=== PATIENT | male | born 1940 | race Caucasian/White ===

== ENCOUNTER 2019-01-28 09:25 | Inpatient (IN) | payer MEDICARE ==
[2019-01-28] MEDS ORDERED: Naloxone HCl 2 mg/2 ml Syringe ONE (09:31)
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
[2019-01-28 10:18] LABS: Hemoglobin 15.7 g/dL (14.0-18.0); Mean Corpuscular HGB CONC 34.3 g/dL (32.0-36.0); Mean Corpuscular Hemoglobin 32.3 pg (27.0-31.0); Mean Corpuscular Volume 94.1 fL (78.0-98.0); Mean Platelet Volume 9.2 fL (7.4-10.4); Platelet Count 245 thou/uL (130-400); RBC Distribution Width 12.4 % (11.5-14.5); Red Blood Cell (RBC) Count 4.85 mill/uL (4.70-6.10); White Blood Cell (WBC) Count 20.9 thou/uL (4.8-10.8)
[2019-01-28 10:21] LABS: INR-International Normal Ratio 1.2; PTT 30.5 SEC (22.9-36.1); Prothrombin Time 14.8 SEC (12.0-14.7)
[2019-01-28] MEDS ORDERED: ISOVUE-370 76%-LOCM 1 ML ONE (10:23)
[2019-01-28 10:24] LABS: ALT (SGPT) 24 U/L (8-55); AST (SGOT) 39 U/L (5-34); Alkaline Phosphatase 96 U/L (40-150); Anion Gap 14 mmol/L (10-20); BUN (Urea Nitrogen) 6 mg/dL (8.4-25.7); Bilirubin, Total 0.9 mg/dL (0.2-1.2); Calc. Creatinine Clearance 0 mL/min (70-130); Carbon Dioxide 24 mmol/L (23-31); Chloride 106 mmol/L (98-107); Estimated GFR-MDRD 73; Globulin 2.7 g/dL (2.4-3.5); Glucose 165 mg/dL (83-110); Potassium 4.2 mmol/L (3.5-5.1); Protein, Total 6.7 g/dL (5.8-8.1); Sodium 140 mmol/L (136-145)
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
[2019-01-28 10:37] LABS: Band 32 % (5-11); Eosinophils 1 % (0-10); Lymphocytes 7 % (21-51); MDiff Complete? YES; Metamyelocyte 2 % (0-0); Monocytes 2 % (0-10); Neutrophil 55 % (42-75); Reactive Lymphocytes 1 % (0-10)
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
[2019-01-28 10:43] LABS: Alcohol Less than 10 mg/dL (Less than 10); Lipase 37 U/L (8-78)
[2019-01-28] MEDS ORDERED: Acetaminophen 1,000 MG in Premix Bag 1 BAG IVPB SCH ×2 (10:45→12:00)
[2019-01-28] MEDS ORDERED: hydrALAZINE 20 MG/ML VIAL SLOW IVP PRN (10:51)
[2019-01-28] MEDS ORDERED: Ondansetron ODT 4 MG TAB PO PRN (10:51)
[2019-01-28] MEDS ORDERED: Dextrose 5% in Water 1,000 ML IV PRN (10:51)
[2019-01-28] MEDS ORDERED: Ondansetron PF 4 MG/2 ML Vial IVP PRN (10:51)
[2019-01-28] MEDS ORDERED: Dextrose 50% Abboject 50 ML SYRINGE SLOW IVP PRN (10:51)
[2019-01-28] MEDS ORDERED: traMADol HCl 50 MG TAB PO PRN (10:59)
[2019-01-28] MEDS ORDERED: Adacel (T-DAP) 0.5 ML SYRINGE ONE (11:01)
[2019-01-28] MEDS ORDERED: Ketorolac Tromethamine 30 MG/ML VIAL ONE (12:06)
[2019-01-28 12:54] LABS: Bilirubin Negative (Negative); Blood, Urine 3+ (Negative); Clarity Turbid (Clear); Glucose, Urine (Dipstick) Normal (Negative); Leukocyte 25 Leu/uL (Negative); Nitrite Negative (Negative); Protein, Urine (Dipstick) 50 mg/dL (Neg-Trace); RBC/HPF Greater than 50 HPF (0-3); Squamous Epithelial None Seen HPF (0-3)
[2019-01-28 13:00] LABS: Sperm/HPF 4+ HPF (None Seen)
[2019-01-28] MEDS ORDERED: Piperacillin/Tazobactam 4.5 GM VIAL ONE (13:00)
[2019-01-28 13:01] LABS: Bacteria/HPF Rare-Few HPF (None Seen); WBC/HPF 0-3 HPF (0-3)
[2019-01-28 13:11] LABS: Phosphorus 3.3 mg/dL (2.3-4.7)
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
[2019-01-28 14:21] LABS: Lactic Acid 5.3 mmol/L (0.5-2.2)
[2019-01-28] MEDS ORDERED: Gabapentin 300 MG CAP PO SCH (15:00)
[2019-01-28] MEDS: traMADol HCl 50 MG TAB PO SCH ×3 (15:31→23:41)
[2019-01-28] MEDS: Sodium Chloride 0.9% 1,000 ML IV SCH ×2 (15:31→21:43)
--- NOTE | 2019-01-28 15:32 | PDOC.EVN ---
Event Note - Event Note Event Note: See trauma H&P by Chiqui Quesada NP. Received narcan on presentation due to narcotic effect. He has had periods of hypotention that respond to fluids. Multiple spinous process fractures and multiple rib fractures. He has first rib fracture but no intimal flap on the CT chest. notes blood in urine yesterday. No evidence of traumatic injury to intra-abd solid and hollow organs. Admit to IMCU, pain control. Blood cultures.
[2019-01-28] MEDS ORDERED: cefTRIAXone\\ROCEPHIN 2 GM in Sodium Chloride 0.9% 100 ML IVPB SCH (16:00)
[2019-01-28] MEDS ORDERED: Acetaminophen 500 MG TAB PO SCH (17:00)
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
[2019-01-28 17:48] LABS: Bilirubin Negative (Negative); Blood, Urine 3+ (Negative); Clarity Turbid (Clear); Glucose, Urine (Dipstick) Normal (Negative); Leukocyte 25 Leu/uL (Negative); Nitrite Negative (Negative); Protein, Urine (Dipstick) 50 mg/dL (Neg-Trace); RBC/HPF Greater than 50 HPF (0-3); Urobilinogen Normal mg/dL (Less than 2)
[2019-01-28 17:52] LABS: WBC/HPF 0-3 HPF (0-3)
[2019-01-28 17:53] LABS: Bacteria/HPF 1+ HPF (None Seen); Squamous Epithelial 0-3 HPF (0-3)
[2019-01-28 17:54] LABS: Urine Culture Reflex No No
[2019-01-28] MEDS ORDERED: Morphine 2 MG/ML SYRINGE IVP PRN (20:13)
[2019-01-28] MEDS ORDERED: Famotidine 20 MG TAB PO PRN (21:00)
[2019-01-28] MEDS ORDERED: Azithromycin 500 MG in Sodium Chloride 0.9% 250 ML 250 ML IVPB SCH (21:00)
[2019-01-28] MEDS: Senokot S 8.6-50 MG TAB PO SCH (21:42)
[2019-01-28] MEDS: Atorvastatin Calcium 20 MG TAB PO SCH (21:42)
[2019-01-28] MEDS: Ibuprofen 600 MG TAB PO SCH (21:43)
[2019-01-28] MEDS: Gabapentin 100 MG CAP PO SCH (21:43)
[2019-01-28] MEDS: Acetaminophen 1,000 MG in Premix Bag 1 BAG IVPB SCH (23:41)
[2019-01-29] MEDS ORDERED: Sodium Chloride 0.9% 500 ML IV SCH (00:15)
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
[2019-01-29] MEDS: Sodium Chloride 0.9% 1,000 ML IV SCH (04:00)
[2019-01-29 05:20] LABS: Lactic Acid 3.1 mmol/L (0.5-2.2); Phosphorus 3.2 mg/dL (2.3-4.7)
[2019-01-29 05:21] LABS: Band 29 % (5-11); Hemoglobin 10.5 g/dL (14.0-18.0); Lymphocytes 8 % (21-51); MDiff Complete? YES; Mean Corpuscular HGB CONC 34.4 g/dL (32.0-36.0); Mean Corpuscular Hemoglobin 32.8 pg (27.0-31.0); Mean Corpuscular Volume 95.1 fL (78.0-98.0); Mean Platelet Volume 9.2 fL (7.4-10.4); Monocytes 4 % (0-10); Neutrophil 59 % (42-75); Platelet Count 145 thou/uL (130-400); RBC Distribution Width 12.4 % (11.5-14.5); Red Blood Cell (RBC) Count 3.21 mill/uL (4.70-6.10); White Blood Cell (WBC) Count 13.6 thou/uL (4.8-10.8)
[2019-01-29 05:24] LABS: Anion Gap 13 mmol/L (10-20); BUN (Urea Nitrogen) 14 mg/dL (8.4-25.7); Calc. Creatinine Clearance 65 mL/min (70-130); Calcium 7.8 mg/dL (7.8-10.44); Carbon Dioxide 20 mmol/L (23-31); Chloride 113 mmol/L (98-107); Estimated GFR-MDRD 62; Glucose 147 mg/dL (83-110); Potassium 4.9 mmol/L (3.5-5.1); Sodium 141 mmol/L (136-145)
[2019-01-29] MEDS: traMADol HCl 50 MG TAB PO SCH ×3 (05:29→18:09)
[2019-01-29] MEDS: Ibuprofen 600 MG TAB PO SCH ×2 (06:19→16:01)
[2019-01-29] MEDS: Acetaminophen 1,000 MG in Premix Bag 1 BAG IVPB SCH (06:19)
[2019-01-29] MEDS ORDERED: Dexamethasone 10 MG/ML VIAL SLOW IVP SCH (08:45)
[2019-01-29] MEDS: Senokot S 8.6-50 MG TAB PO SCH ×2 (08:59→19:55)
[2019-01-29] MEDS: Ubidecarenone 50 MG CAP PO SCH (09:00)
[2019-01-29] MEDS: Metoprolol Tartrate 25 MG TAB PO SCH (09:00)
[2019-01-29] MEDS: Rivastigmine 1.5 MG CAP PO SCH ×2 (09:00→18:06)
[2019-01-29] MEDS: Folic Acid 1 MG TAB PO SCH (09:00)
[2019-01-29] MEDS: Gabapentin 100 MG CAP PO SCH ×3 (09:00→19:53)
[2019-01-29] MEDS: Cyclobenzaprine 10 MG TAB PO PRN ×2 (09:00→19:53)
[2019-01-29] MEDS: Dutasteride 0.5 MG CAP PO SCH (09:00)
--- NOTE | 2019-01-29 09:08 | RAD ---
CHEST 1 VIEW: Date: 01/29/19 HISTORY: Follow-up multiple rib fractures. COMPARISON: 01/28/19. FINDINGS: Multiple bilateral rib deformities. Bilateral pleural thickening. Increased markings bilaterally, sta ble. No pneumothorax demonstrated. IMPRESSION: Stable appearing rib fractures and bilateral pleural thickening and increased markings bilaterally. N o overt new process. No evidence for pneumothorax. POS: [facility]
[2019-01-29] MEDS: Acetaminophen 500 MG TAB PO SCH ×2 (11:45→18:09)
[2019-01-29 12:16] VITALS: BMI 26.2
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
[2019-01-29] MEDS ORDERED: Gabapentin 300 MG CAP PO SCH (15:00)
[2019-01-29] MEDS: Atorvastatin Calcium 20 MG TAB PO SCH (19:54)
[2019-01-29] MEDS ORDERED: Morphine 2 MG/ML SYRINGE IVP PRN (20:59)
[2019-01-29] MEDS ORDERED: Morphine 4 MG/ML VIAL SLOW IVP SCH (21:00)
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
[2019-01-30] MEDS: traMADol HCl 50 MG TAB PO SCH ×4 (00:05→18:23)
[2019-01-30] MEDS: Ibuprofen 600 MG TAB PO SCH ×3 (00:05→14:11)
[2019-01-30] MEDS: Acetaminophen 500 MG TAB PO SCH ×4 (00:06→18:22)
[2019-01-30 05:19] LABS: Lactic Acid 1.8 mmol/L (0.5-2.2)
[2019-01-30 05:31] LABS: Anion Gap 9 mmol/L (10-20); BUN (Urea Nitrogen) 12 mg/dL (8.4-25.7); CK (CPK) 1749 U/L (30-200); Calc. Creatinine Clearance 98 mL/min (70-130); Calcium 8.4 mg/dL (7.8-10.44); Carbon Dioxide 24 mmol/L (23-31); Chloride 109 mmol/L (98-107); Estimated GFR-MDRD Greater than 90; Glucose 142 mg/dL (83-110); Magnesium 2.2 mg/dL (1.6-2.6); Phosphorus 1.8 mg/dL (2.3-4.7); Potassium 4.2 mmol/L (3.5-5.1); Sodium 138 mmol/L (136-145)
[2019-01-30 05:33] LABS: #Lymphocytes 0.7 thou/uL (1.20-3.40); #Monocytes 1.2 thou/uL (0.11-0.59); #Neutrophils 13.9 thou/uL (1.40-6.50); %Basophils 0.1 % (0.0-1.0); %Eosinophils 0.1 % (0.0-10.0); %Lymphocytes 4.2 % (21.0-51.0); %Monocytes 7.5 % (0.0-10.0); %Neutrophils 88.1 % (42.0-75.0); Hemoglobin 8.9 g/dL (14.0-18.0); Mean Corpuscular HGB CONC 34.9 g/dL (32.0-36.0); Mean Corpuscular Volume 94.5 fL (78.0-98.0); Mean Platelet Volume 9.4 fL (7.4-10.4); Platelet Count 118 thou/uL (130-400); Platelet Morphology Comment Appears Decreased; RBC Distribution Width 12.2 % (11.5-14.5); Red Blood Cell (RBC) Count 2.71 mill/uL (4.70-6.10); White Blood Cell (WBC) Count 15.8 thou/uL (4.8-10.8)
[2019-01-30] MEDS ORDERED: Sodium Phosphate 30 MMOL in Sodium Chloride 0.9% 250 ML 250 ML IVPB SCH (06:00)
--- NOTE | 2019-01-30 08:22 | RAD ---
XR Chest 1 View Portable History: Contusion Comparison: Radiograph prior day Findings: Multiple right-sided rib fractures are similar. Multiple remote left-sided rib fractures. T he extrapleural fluid on the right and extrapleural fat on the left is similar. Fibrosis in the lung bases. No pneumothorax. Impression: No significant change.
[2019-01-30] MEDS: Ubidecarenone 50 MG CAP PO SCH (08:48)
[2019-01-30] MEDS: Rivastigmine 1.5 MG CAP PO SCH ×2 (08:48→18:24)
[2019-01-30] MEDS: Gabapentin 100 MG CAP PO SCH (08:49)
[2019-01-30] MEDS: Dutasteride 0.5 MG CAP PO SCH (08:49)
[2019-01-30] MEDS: Metoprolol Tartrate 25 MG TAB PO SCH (08:49)
[2019-01-30] MEDS: Folic Acid 1 MG TAB PO SCH (08:49)
[2019-01-30] MEDS: Senokot S 8.6-50 MG TAB PO SCH ×2 (12:00→20:41)
[2019-01-30] MEDS: Gabapentin 300 MG CAP PO SCH ×2 (14:11→20:41)
[2019-01-30] MEDS ORDERED: Polyethylene Glycol 3350 17 GM Packet PO SCH (15:45)
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
[2019-01-30] MEDS: Atorvastatin Calcium 20 MG TAB PO SCH (20:40)
[2019-01-30] MEDS: Cyclobenzaprine 10 MG TAB PO PRN (20:41)
[2019-01-30] MEDS ORDERED: traMADol HCl 50 MG TAB PO PRN (21:22)
[2019-01-30] MEDS ORDERED: Melatonin 3 MG TAB PO PRN (21:23)
[2019-01-30] MEDS ORDERED: Ketorolac Tromethamine 30 MG/ML VIAL IVP SCH (21:30)
[2019-01-30] MEDS: Acetaminophen 325 MG TAB PO SCH (21:51)
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
[2019-01-31] MEDS: Acetaminophen/Codeine 30-300mg Tablet PO SCH ×4 (00:05→17:16)
[2019-01-31 05:08] LABS: #Eosinphils 0.1 thou/uL (0.0-0.7); #Lymphocytes 1.6 thou/uL (1.20-3.40); #Neutrophils 11.8 thou/uL (1.40-6.50); %Basophils 0.1 % (0.0-1.0); %Eosinophils 0.5 % (0.0-10.0); %Lymphocytes 11.3 % (21.0-51.0); %Monocytes 6.7 % (0.0-10.0); %Neutrophils 81.3 % (42.0-75.0); Hemoglobin 9.3 g/dL (14.0-18.0); Mean Corpuscular HGB CONC 34.6 g/dL (32.0-36.0); Mean Corpuscular Hemoglobin 32.4 pg (27.0-31.0); Mean Corpuscular Volume 93.6 fL (78.0-98.0); Mean Platelet Volume 9.3 fL (7.4-10.4); Platelet Count 135 thou/uL (130-400); RBC Distribution Width 12.5 % (11.5-14.5); Red Blood Cell (RBC) Count 2.88 mill/uL (4.70-6.10); White Blood Cell (WBC) Count 14.5 thou/uL (4.8-10.8)
[2019-01-31] MEDS: Acetaminophen 325 MG TAB PO SCH ×3 (05:10→20:30)
[2019-01-31] MEDS: Ibuprofen 600 MG TAB PO SCH ×3 (05:10→22:30)
[2019-01-31 05:24] LABS: Anion Gap 12 mmol/L (10-20); BUN (Urea Nitrogen) 9 mg/dL (8.4-25.7); Calc. Creatinine Clearance 118 mL/min (70-130); Carbon Dioxide 25 mmol/L (23-31); Chloride 103 mmol/L (98-107); Estimated GFR-MDRD Greater than 90; Glucose 95 mg/dL (83-110); Phosphorus 2.7 mg/dL (2.3-4.7); Potassium 3.7 mmol/L (3.5-5.1); Sodium 136 mmol/L (136-145)
[2019-01-31] MEDS: Ubidecarenone 50 MG CAP PO SCH (08:22)
[2019-01-31] MEDS: Senokot S 8.6-50 MG TAB PO SCH ×2 (08:22→20:30)
[2019-01-31] MEDS: Rivastigmine 1.5 MG CAP PO SCH ×2 (08:22→17:17)
[2019-01-31] MEDS: Gabapentin 300 MG CAP PO SCH ×3 (08:22→20:30)
[2019-01-31] MEDS: Polyethylene Glycol 3350 17 GM Packet PO SCH (08:22)
[2019-01-31] MEDS: Dutasteride 0.5 MG CAP PO SCH (08:22)
[2019-01-31] MEDS: Folic Acid 1 MG TAB PO SCH (08:23)
[2019-01-31] MEDS: Metoprolol Tartrate 25 MG TAB PO SCH (08:23)
[2019-01-31] MEDS: Cyclobenzaprine 10 MG TAB PO PRN (09:04)
[2019-01-31] MEDS ORDERED: Furosemide 40 MG/4 ML VIAL SLOW IVP SCH (16:30)
[2019-01-31] MEDS ORDERED: Furosemide 40 MG/4 ML VIAL ONE (17:20)
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
[2019-01-31] MEDS ORDERED: Bisacodyl 10 MG SUPP ONE (20:27)
[2019-01-31] MEDS: Atorvastatin Calcium 20 MG TAB PO SCH (20:30)
[2019-01-31] MEDS ORDERED: Bisacodyl 10 MG SUPP PR PRN (20:36)
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
[2019-02-01] MEDS: Acetaminophen/Codeine 30-300mg Tablet PO SCH ×4 (00:24→18:05)
[2019-02-01 05:50] LABS: #Basophils 0.1 thou/uL (0.0-0.2); #Eosinphils 0.6 thou/uL (0.0-0.7); #Lymphocytes 1.9 thou/uL (1.20-3.40); #Monocytes 0.9 thou/uL (0.11-0.59); #Neutrophils 8.3 thou/uL (1.40-6.50); %Basophils 0.4 % (0.0-1.0); %Eosinophils 4.8 % (0.0-10.0); %Lymphocytes 16.6 % (21.0-51.0); %Monocytes 7.5 % (0.0-10.0); %Neutrophils 70.7 % (42.0-75.0); Mean Corpuscular Hemoglobin 31.6 pg (27.0-31.0); Mean Corpuscular Volume 93.1 fL (78.0-98.0); Mean Platelet Volume 8.8 fL (7.4-10.4); Platelet Count 149 thou/uL (130-400); RBC Distribution Width 12.8 % (11.5-14.5); Red Blood Cell (RBC) Count 2.83 mill/uL (4.70-6.10); White Blood Cell (WBC) Count 11.7 thou/uL (4.8-10.8)
[2019-02-01] MEDS: Acetaminophen 325 MG TAB PO SCH ×2 (06:02→15:28)
[2019-02-01] MEDS: Ibuprofen 600 MG TAB PO SCH ×2 (06:03→15:28)
[2019-02-01 06:18] LABS: Anion Gap 12 mmol/L (10-20); BUN (Urea Nitrogen) 13 mg/dL (8.4-25.7); Calc. Creatinine Clearance 116 mL/min (70-130); Calcium 8.9 mg/dL (7.8-10.44); Carbon Dioxide 26 mmol/L (23-31); Chloride 103 mmol/L (98-107); Estimated GFR-MDRD Greater than 90; Glucose 89 mg/dL (83-110); Magnesium 1.9 mg/dL (1.6-2.6); Potassium 3.5 mmol/L (3.5-5.1); Sodium 137 mmol/L (136-145)
[2019-02-01] MEDS ORDERED: Potassium Chloride 40 MEQ, Magnesium Sulfate 2 GM in Sodium Chloride 0.9% 250 ML 250 ML IVPB SCH (08:45)
[2019-02-01] MEDS: Polyethylene Glycol 3350 17 GM Packet PO SCH (09:43)
[2019-02-01] MEDS: Rivastigmine 1.5 MG CAP PO SCH ×2 (09:44→18:05)
[2019-02-01] MEDS: Gabapentin 300 MG CAP PO SCH ×2 (09:44→15:28)
[2019-02-01] MEDS: Senokot S 8.6-50 MG TAB PO SCH (09:44)
[2019-02-01] MEDS: Ubidecarenone 50 MG CAP PO SCH (09:44)
[2019-02-01] MEDS: Dutasteride 0.5 MG CAP PO SCH (09:45)
[2019-02-01] MEDS: Folic Acid 1 MG TAB PO SCH (09:45)
[2019-02-01] MEDS: Metoprolol Tartrate 25 MG TAB PO SCH (09:45)
--- NOTE | 2019-02-01 10:26 | RAD ---
PORTABLE AP CHEST: Date: 02/01/19 HISTORY: Follow-up evaluation. COMPARISON: 01/30/19. FINDINGS: There are remote bilateral rib fractures with pleural based densities bilaterally, which may be relat ed to areas of mild pleural thickening. There are linear densities present at each lung base, greater on the right, which could be related to bibasilar atelectasis. Cardiac silhouette and pulmonary vasc ulature are within normal limits. There has been no other interval change from the prior exam. IMPRESSION: Overall stable chest with probable mild atelectasis at each lung base. POS: ELISA
[2019-02-01] MEDS ORDERED: Furosemide 20 MG TAB PO SCH (10:30)
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
[2019-02-01 15:28] VITALS: BP 109/66; TEMP 97.6
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
== END 2019-02-01 19:50 | DRG 964 ==
LOC: ERS 09:25 → IMCU/EMU 15:21 → SURG A 01-29 16:19
PROVIDERS: ADMIT Surgery; ATTEND Surgery
DX: S22.43XA Multiple fractures of ribs, bilateral, initial encounter for closed fracture (principal); S12.500A Unspecified displaced fracture of sixth cervical vertebra, initial encounter for closed fracture; S27.321A Contusion of lung, unilateral, initial encounter; T79.6XXA Traumatic ischemia of muscle, initial encounter; S12.600A Unspecified displaced fracture of seventh cervical vertebra, initial encounter for closed fracture; S22.019A Unspecified fracture of first thoracic vertebra, initial encounter for closed fracture; S22.029A Unspecified fracture of second thoracic vertebra, initial encounter for closed fracture; S22.031A Stable burst fracture of third thoracic vertebra, initial encounter for closed fracture; E87.2 Acidosis; K56.7 Ileus, unspecified; J98.11 Atelectasis; I25.10 Atherosclerotic heart disease of native coronary artery without angina pectoris; K21.9 Gastro-esophageal reflux disease without esophagitis; N40.0 Benign prostatic hyperplasia without lower urinary tract symptoms; E78.5 Hyperlipidemia, unspecified; I10 Essential (primary) hypertension; D72.829 Elevated white blood cell count, unspecified; D72.825 Bandemia; E86.1 Hypovolemia; V59.49XA Driver of pick-up truck or van injured in collision with other motor vehicles in traffic accident, initial encounter; Z79.02 Long term (current) use of antithrombotics/antiplatelets; Z85.038 Personal history of other malignant neoplasm of large intestine; I25.2 Old myocardial infarction; Z90.49 Acquired absence of other specified parts of digestive tract; Z87.891 Personal history of nicotine dependence; Z79.899 Other long term (current) drug therapy; Y92.411 Interstate highway as the place of occurrence of the external cause
CPT/HCPCS: 36415; 70450; 71045; 71260; 72125; 74177; 80048; 80053; 80307; 81003; 81015; 82550; 83605; 83690; 83735; 83880; 84100; 85007; 85025; 85027; 85610; 85730; 86140; 86850; 86900; 86901; 87040; 87086; 90715; 93005; 94640; G0390; J0131; J0360; J1100; J1885; J1940; J2270; J2310; J2543; J2710; J3370; J3475; J3480; J7050; J7620; Q9966

== ENCOUNTER 2019-03-15 14:09 | Outpatient (CLI) | payer MEDICARE ==
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
== END 2019-03-15 14:10 | disposition home or self-care (01) ==
LOC: TBSIIMAG 14:09
PROVIDERS: ATTEND Neurological Surgery
DX: S12.9XXA Fracture of neck, unspecified, initial encounter (principal); S22.009A Unspecified fracture of unspecified thoracic vertebra, initial encounter for closed fracture; M47.812 Spondylosis without myelopathy or radiculopathy, cervical region; M40.204 Unspecified kyphosis, thoracic region
CPT/HCPCS: 72040; 72070